=== PATIENT | male | born 1940 | race Two or more races ===

== ENCOUNTER 2022-07-11 16:02 | Emergency (ER) | payer OTHER ==
[~2022-07-11] VITALS: Ht 185.4 cm; Wt 97.5 kg
[2022-07-11] MEDS ORDERED: IV NS 0.9% 500 ML BAG IV ONE (16:30)
--- NOTE | 2022-07-11 16:30 | NUR ---
BIBS C/C GENERALIZED ITCHING. A/O X 3
--- NOTE | 2022-07-11 16:37 | NUR ---
ADDENDUM: Intravenous End Time Documentation: 1. Normal saline 500 cc (IV-WO): start time: 163 ; end time: 1706 : IV site: RAC PIV # 20 Port # 1 2. Normal saline 1 liter (IV-WO) : start time: 1920 ; end time: 2020 : IV site: RAC PIV # 20 Port # 1
--- NOTE | 2022-07-11 16:37 | NUR ---
20 g L AC Addendum: 07/11/22 at 1639 marie SALES 18 g L AC present [employer]
--- NOTE | 2022-07-11 16:37 | NUR ---
BLOOD SAMPLES OBTAINED
[2022-07-11 16:52] LABS: BASOPHILS % (AUTO) 0.2 % (0.0-2.0); EOSINOPHILS % (AUTO) 6.2 % (0.0-6.0); HEMATOCRIT 29 % (39-51); HEMOGLOBIN 8.7 g/dL (13.5-17.5); LYMPHOCYTES # (AUTO) 0.5 K/uL (0.8-4.8); LYMPHOCYTES % (AUTO) 2.9 % (20.0-44.0); MEAN CORPUSCULAR HGB CONC 30 g/dl (31.0-36.0); MEAN CORPUSCULAR VOLUME 95 fL (80-96); MONOCYTES # (AUTO) 1.1 K/uL (0.1-1.30); NEUTROPHILS # (AUTO) 14.9 K/uL (1.8-8.9); NEUTROPHILS % (AUTO) 84.7 % (43.0-81.0); PLATELET COUNT (AUTO) 183 K/uL (150-450); RED BLOOD CELL COUNT(AUTO) 3.04 MIL/uL (4.5-6.0); WHITE BLOOD COUNT (AUTO) 17.6 K/uL (4.3-11.0)
[2022-07-11 17:22] LABS: CALCIUM, SERUM 8.2 mg/dL (8.5-10.1); CARBON DIOXIDE 24 mmol/L (21-32); CHLORIDE 102 mmol/L (98-107); CREATININE 1.4 mg/dL (0.6-1.3); GLUCOSE 136 mg/dL (74-106); POTASSIUM 4.3 mmol/L (3.5-5.1); SODIUM SERUM 136 mmol/L (136-145); UREA NITROGEN, BLOOD 27 mg/dL (7-18)
[2022-07-11 17:28] LABS: ALANINE AMINOTRANSFERASE 27 U/L (12-78); ALBUMIN 2.9 g/dL (3.4-5.0); ALKALINE PHOSPHATASE 78 U/L (46-116); ASPARTATE AMINOTRANSFERASE 31 U/L (15-37); BILIRUBIN,DIRECT 0.4 mg/dL (0.0-0.2); TOTAL PROTEIN, SERUM 5.8 g/dL (6.4-8.2)
[2022-07-11] MEDS ORDERED: IV NS 0.9% 1,000 ML BAG IV ONE (18:30)
--- NOTE | 2022-07-11 19:33 | NUR ---
URINE SAMPLE OBTAINED
[2022-07-11 20:10] LABS: BILIRUBIN,URINE NEGATIVE (NEGATIVE); COLOR,URINE YELLOW (YELLOW); LEUKOCYTE ESTERASE ,URINE NEGATIVE (NEGATIVE); NITRITE, URINE NEGATIVE (NEGATIVE); PROTEIN,URINE NEGATIVE (NEGATIVE); UGLUCOSE NEGATIVE (NEGATIVE); UROBILINOGEN,URINE 0.2 EU/dL (0.2)
--- NOTE | 2022-07-11 20:39 | NUR ---
JUSTIN EPRP PAGED PER DR CASTILLO.
[2022-07-11] MEDS ORDERED: CEFTRIAXONE 1GM BAG (ER ONLY) 1 GM/50 ML PIGGYBACK IV ONE (22:00)
[2022-07-11] MEDS ORDERED: CEFTRIAXONE 1GM BAG (ER ONLY) 50 ML IV ONE (22:05)
--- NOTE | 2022-07-12 00:44 | NUR ---
DAUGHTER, [facility], [place]: [phone]
--- NOTE | 2022-07-12 01:38 | NUR ---
COVID SWABBED, SENT TO LAB
--- NOTE | 2022-07-12 01:54 | NUR ---
transfer info: [facility] [phone] dr. chandra eta [id number] PRN ALS
--- NOTE | 2022-07-12 02:18 | NUR ---
CALLED FOR REPORT, UNAVILABLE. WILL CALL BACK SOON
[2022-07-12 02:57] VITALS: BP 107/56
--- NOTE | 2022-07-12 03:08 | NUR ---
Report given to Andrew ADAMS for JAIR. Pt picked up by Glenroy MERCER.
== END 2022-07-12 03:32 | disposition short-term general hospital (02) ==
LOC: ER 16:18
DX: A41.9 Sepsis, unspecified organism (principal); I95.9 Hypotension, unspecified; E86.0 Dehydration; N17.9 Acute kidney failure, unspecified; Z85.46 Personal history of malignant neoplasm of prostate; Z20.822 Contact with and (suspected) exposure to COVID-19
CPT/HCPCS: 99291; 96365; 70450; 96361; 93005; 71045; 84145; 85025; 80048; 87040 ×2; 87086; 83605 ×2; 80076; 81003; 36415; 84484 ×2; 85730; 82962; 87426; J7030; J7040; J0696; C9803